=== PATIENT | male | born 1960 | race Hispanic/Latino ===

== ENCOUNTER → 2021-03-13 13:30 | Outpatient (CLI) | payer BC, SELFPAY ==
--- NOTE | 2021-03-13 | DI.RAD.S_ITS ---
PROCEDURE: FL JOINT INJECTION LARGE LT INDICATIONS: Unilateral primary osteoarthritis, left hip COMPARISON: None. TECHNIQUE: Single fluoroscopic image is provided for evaluation. FINDINGS: Needle is noted overlying the lateral aspect the femoral head. Contrast is noted overlying the joint space. IMPRESSION: Needle placement and contrast for hip injection. Dictated by: Leticia Rodrigues M.D. on 03/13/2021 at 19:33 Approved by: Leticia Rodrigues M.D. on 03/13/2021 at 19:34
== END ==
PROVIDERS: PCP Family Medicine; Referring Provider Orthopaedic Surgery; Visit Provider Orthopaedic Surgery
DX: M16.12 Unilateral primary osteoarthritis, left hip (principal)
CPT/HCPCS: 20610; 77002

== ENCOUNTER 2021-11-11 04:03 | Emergency (ER) | payer BC, SELFPAY ==
[2021-11-11 04:04] VITALS: BP 180/100; PULSE 118; RESP 20; TEMP 37.7; O2SAT 95; BMI 32.6
--- NOTE | 2021-11-11 04:15 | DI.RAD.S_ITS ---
PROCEDURE: XR CHEST 1V INDICATIONS: chest pain TECHNIQUE: One view of the chest was acquired. COMPARISON: [facility], CR, XR CHEST 1 VIEW, 12/04/2018, 18:45. FINDINGS: Surgical changes and devices: Cervical spinal fusion hardware is noted. Lungs and pleura: Possible mild bibasilar opacities. No pleural effusions or pneumothorax. Mediastinum: Mediastinal contours appear normal. Heart size is normal. Bones and chest wall: No suspicious bony lesions. Overlying soft tissues appear unremarkable. IMPRESSION: Possible mild bibasilar opacities could represent mild atelectasis, aspiration, or pneumonia. There is no significant discrepancy when compared to the overnight preliminary report. Dictated by: Arvind Spears M.D. on 11/11/2021 at 8:23 Approved by: Arvind Spears M.D. on 11/11/2021 at 8:25
--- NOTE | 2021-11-11 04:22 | ED_ITS ---
HPI - Chest Pain General Chief Complaint: Chest Pain Stated Complaint: pain in chest when coughing and swallowing Time Seen by Provider: 11/11/21 04:14 Source: patient and family Mode of arrival: Ambulatory Limitations: no limitations Limitations: no limitations History of Present Illness HPI narrative: 61-year-old male who is here for evaluation of pain in the epigastric region in the middle of his chest for the past 24-36 hours. He states that it hurts especially when he coughs and also when he swallows. No nausea vomiting. No change in bowel habits. No prior abdominal surgeries. No fevers. Symptoms not worse with palpation and movement. Back pain. Has not tried anything for the symptoms prior to arrival no history of reflux disease. No history of gallbladder pathology. Related Data Allergies Allergy/AdvReac Type Severity Reaction Status Date / Time No Known Drug Allergies Allergy Verified 11/11/21 04:22 Review of Systems Constitutional Constitutional: Denies fever(s) Cardiovascular Cardiovascular: Reports system reviewed and no additional complaints, except as documented Respiratory Respiratory: Reports system reviewed and no additional complaints, except as documented Gastrointestinal Gastrointestinal: Reports system reviewed and no additional complaints, except a s documented Musculoskeletal Musculoskeletal: Reports system reviewed and no additional complaints, except as documented Integumentary/Breasts Skin/Breast: Reports system reviewed and no additional complaints, except as documented Neurologic Neurologic: Reports system reviewed and no additional complaints, except as documented Hematologic/Lymphatic On Anticoagulants: No Patient History Medical History Hypertension Social History Smoking Status: Never smoker Smoking Status: Never smoker alcohol intake frequency: 3 or more drinks per day Substance Use Type: does not use Exam Initial Vital Signs Initial Vital Signs: Vital Signs Temperature 99.9 F H 11/11/21 04:04 Pulse Rate 118 H 11/11/21 04:04 Respiratory Rate 20 11/11/21 04:04 Blood Pressure 180/100 H 11/11/21 04:04 Pulse Oximetry 95 11/11/21 04:04 Oxygen Delivery Method 11/11/21 04:04 Const General: cooperative, healthy appearing, comfortable and well developed [facility] Head: normal to inspection and normocephalic Resp Effort & Inspection: normal respiratory effort Auscultation: clear to auscultation bilaterally Cardio Rate: regular rate Rhythm: regular rhythm GI Inspection: normal to inspection Palpation: soft, No firm and No tender Back/Spine/Pelvis Back: No CVA tenderness Skin General: no rashes or lesions noted Neuro General: patient alert, patient awake, patient oriented x3 and moves all extremities Extrem General: normal to inspection and No edema Psych Appearance: grossly normal and well kempt Scores HEART Score Heart Score history: Slightly Suspicious Heart Score EKG: Normal Heart Score Age: 45-64 years old Heart Score risk factors: 1-2 risk factors Heart Score troponin: < or = to normal limit Heart Score Total: 2 Course Orders Ordered: ED Orders 11/11/21 04:10 EKG-12 Lead Stat 11/11/21 04:15 XR chest 1V Stat 11/11/21 04:30 Complete Blood Count AUTO DIFF Stat Comprehensive Metabolic Panel Stat Lactate (Lactic Acid) Stat Lipase Stat Troponin & CK Cardiac Panel Stat 11/11/21 04:54 Blood Culture Stat 11/11/21 05:15 Urinalysis and Microscopic Stat Urine Culture Stat 11/11/21 06:35 Troponin I Stat Discontinued Medications Al Hydrox/Mg Hydrox/Simethicone 20 ml/ Lidocaine HCl 15 ml 0 ml PO NOW ONE Stop: 11/11/21 04:22 Last Admin: 11/11/21 04:41 Dose: 35 ml Documented By: JING Sodium Chloride (Normal Saline 0.9%) 1,000 mls @ 1,000 mls/hr IV BOLUS ONE Stop: 11/11/21 05:13 Last Infusion: 11/11/21 06:51 Dose: 0 mls/hr Documented By: Admin: 11/11/21 04:41 Dose: 1,000 mls/hr Documented By: JING Pantoprazole Sodium (Pantoprazole 40 Mg Vial) 40 mg IV NOW ONE Stop: 11/11/21 04:22 Last Admin: 11/11/21 04:41 Dose: 40 mg Documented By: JING Vital Signs Vital signs: Vital Signs - 8 hr 11/11/21 04:04 11/11/21 04:39 Temperature 99.9 F H Pulse Rate 118 H 106 H Respiratory Rate 20 19 Blood Pressure 180/100 H 145/84 H Pulse Oximetry 95 98 Oxygen Delivery Method Room Air Room Air MDM - Chest Pain Lab Data Attestation: I reviewed the patient's lab results. Result diagrams: 11/11/21 04:30 11/11/21 04:30 Labs: Lab Results 11/11/21 11/11/21 11/11/21 Range/Units 04:30 04:30 04:30 WBC 13.0 H (4.5-11.0) X10^3/uL RBC 4.75 (4.5-5.9) X10^6/uL Hgb 14.7 (13.5-17.5) g/dL Hct 42.6 (41-53) % MCV 89.8 (80-100) fL MCH 30.9 (26-34) PG MCHC 34.4 (30-36) % RDW 13.6 (11.6-14.8) % Plt Count 197 (150-400) X10^3/uL Neut % (Auto) Not Reportable Lymph % (Auto) Not Reportable Traverse % (Auto) Not Reportable Eos % (Auto) Not Reportable Baso % (Auto) Not Reportable Lymph # (Auto) Not Reportable Traverse # (Auto) Not Reportable Baso # (Auto) Not Reportable Total Counted 100 Seg Neutrophils % 77.0 H (38-70) % Band Neutrophils % 5.0 (3-7) % Lymphocytes % (Manual) 9.0 L (25-45) % Monocytes % (Manual) 7.0 (2-11) % Eosinophils % (Manual) 2.0 (2-4) % Neutrophils # (Manual) 49914 H (0141-5273) /uL RBC Morphology Normal morphology Sodium 136 L (137-145) mmol/L Potassium 3.9 (3.4-5.1) mmol/L Chloride 101 (98-107) mmol/L Carbon Dioxide 25 (22-32) mmol/L BUN 18 (9-20) mg/dL Creatinine 1.36 H (0.66-1.25) mg/dL Estimated GFR 58 L (>60) mL/min BUN/Creatinine Ratio 13.2 (6-22) Glucose 130 H (80-110) mg/dL Lactate 0.9 (0.7-2.1) mmol/L Calcium 8.5 (8.4-10.2) mg/dL Total Bilirubin 1.9 H (0.2-1.3) mg/dL AST 26 (17-59) IU/L ALT 34 (<50) IU/L Alkaline Phosphatase 78 (38-126) U/L Total Creatine Kinase (55-170) U/L CK-MB (CK-2) (<2.37) ng/mL CK-MB (CK-2) Rel Index (1.5-5.0) % Troponin I (0.01-0.034) ng/mL Total Protein 7.8 (6.3-8.2) g/dL Albumin 4.2 (3.5-5.0) g/dL Globulin 3.6 (1.7-4.1) g/dL Albumin/Globulin Ratio 1.2 (1.0-2.8) Lipase 66 (23-300) U/L Urine Color Urine Appearance Urine pH (4.5-8.0) Ur Specific Sumner (1.000-1.035) Urine Protein (Negative) Urine Glucose (UA) (Negative) g/dL Urine Ketones (NEGATIVE) Urine Occult Blood (Negative) Urine Nitrate (Negative) Urine Bilirubin (NEGATIVE) Urine Urobilinogen (0.2) E.U./dL Ur Leukocyte Esterase (NEGATIVE) Urine RBC (0-5/HPF) Urine WBC (0-5/HPF) Urine Bacteria (None) Ur Culture Indicated? Micro UA Comment 11/11/21 11/11/21 11/11/21 Range/Units 04:30 05:15 06:35 WBC (4.5-11.0) X10^3/uL RBC (4.5-5.9) X10^6/uL Hgb (13.5-17.5) g/dL Hct (41-53) % MCV (80-100) fL MCH (26-34) PG MCHC (30-36) % RDW (11.6-14.8) % Plt Count (150-400) X10^3/uL Neut % (Auto) Lymph % (Auto) Traverse % (Auto) Eos % (Auto) Baso % (Auto) Lymph # (Auto) Traverse # (Auto) Baso # (Auto) Total Counted Seg Neutrophils % (38-70) % Band Neutrophils % (3-7) % Lymphocytes % (Manual) (25-45) % Monocytes % (Manual) (2-11) % Eosinophils % (Manual) (2-4) % Neutrophils # (Manual) (7649-8943) /uL RBC Morphology Sodium (137-145) mmol/L Potassium (3.4-5.1) mmol/L Chloride (98-107) mmol/L Carbon Dioxide (22-32) mmol/L BUN (9-20) mg/dL Creatinine (0.66-1.25) mg/dL Estimated GFR (>60) mL/min BUN/Creatinine Ratio (6-22) Glucose (80-110) mg/dL Lactate (0.7-2.1) mmol/L Calcium (8.4-10.2) mg/dL Total Bilirubin (0.2-1.3) mg/dL AST (17-59) IU/L ALT (<50) IU/L Alkaline Phosphatase (38-126) U/L Total Creatine Kinase 110 (55-170) U/L CK-MB (CK-2) 0.32 (<2.37) ng/mL CK-MB (CK-2) Rel Index 0.3 L (1.5-5.0) % Troponin I < 0.012 < 0.012 (0.01-0.034) ng/mL Total Protein (6.3-8.2) g/dL Albumin (3.5-5.0) g/dL Globulin (1.7-4.1) g/dL Albumin/Globulin Ratio (1.0-2.8) Lipase (23-300) U/L Urine Color Yellow Urine Appearance Clear Urine pH 6.5 (4.5-8.0) Ur Specific Sumner 1.010 (1.000-1.035) Urine Protein Trace H (Negative) Urine Glucose (UA) Negative (Negative) g/dL Urine Ketones Trace H (NEGATIVE) Urine Occult Blood Trace-intact (Negative) Urine Nitrate Negative (Negative) Urine Bilirubin Negative (NEGATIVE) Urine Urobilinogen 0.2 (0.2) E.U./dL Ur Leukocyte Esterase Negative (NEGATIVE) Urine RBC None seen (0-5/HPF) Urine WBC None seen (0-5/HPF) Urine Bacteria None seen (None) Ur Culture Indicated? Culture not indicate Micro UA Comment * Imaging Data Chest x-ray: Radiologist's Impression: Mild bibasilar opacities can not exclude atypical pneumonia ECG Data Attestation: I personally reviewed and interpreted this ECG as follows: Interpretation: Sinus tachycardia Ventricular rate 119 Normal axis Normal QRS Normal QTC Incomplete right bundle-branch block No ST T wave changes MDM Narrative Medical decision making narrative: Patient was having improvement of symptoms upon arrival and during his time here his symptoms have resolved. He does think that the GI cocktail helped his symptoms somewhat. He does have a low risk heart score. His EKG is unremarkable. 2- troponins. I have a higher suspicion this is GI etiology. His blood pressure improved. He does have a leukocytosis and the chest x-ray does have reports of bibasilar opacities however clinically he does not have pneumonia. He does not have a productive cough. He is a clear lung exam. Is afebrile. I do feel that we should hold on antibiotics given his clinical presentation. Plan abuse for him to discharge home. He will contact his primary doctor to discuss further risk stratification for stress testing. I will start him on a proton pump inhibitor regiment. He was given strict return precautions. He expressed understanding and agreement. Discharge Plan Departure Patient Disposition: Home Clinical Impression: Atypical chest pain Instructions: DI for Atypical Chest Pain Activity Restrictions/Additional Instructions: I recommend that you contact your primary doctor for follow-up and to discuss further testing such as a stress test and also to discuss your blood pressure as it was elevated upon your arrival here to the ER. I also recommend that you sta rt on a gastroesophageal reflux disease regiment of medications. I recommend a class of medicines called proton pump inhibitors. This class includes medicines such as Nexium and Protonix. You can purchase these medications [id number]. The generic versions of these medications as appropriate. Please take them as directed. Return to the emergency department for any new or worsening symptoms. Referrals: Leobardo Akhtar DO [Primary Care Provider] -
[2021-11-11 04:39] VITALS: BP 145/84; PULSE 106; RESP 19; O2SAT 98
[2021-11-11] MEDS: PANTOPRAZOLE 40 MG VIAL IV (04:41)
[2021-11-11] MEDS: MAG HYDROX/ALUMINUM/SIMETH SUS 20 ML, LIDOCAINE VISCOUS 2% 15 ML PO (04:41)
[2021-11-11] MEDS: SODIUM CHLORIDE 0.9% 1,000 ML 1000 ML IV (04:41)
[2021-11-11 04:57] LABS: Hematocrit 42.6 % (41-53); Hemoglobin 14.7 g/dL (13.5-17.5); Mean Corpuscular HGB Conc 34.4 % (30-36); Mean Corpuscular Hemoglobin 30.9 PG (26-34); Mean Corpuscular Volume 89.8 fL (80-100); Platelet Count 197 X10^3/uL (150-400); Red Blood Cell Count 4.75 X10^6/uL (4.5-5.9); Red Cell Distribution Width 13.6 % (11.6-14.8)
[2021-11-11 04:58] LABS: Add Manual Diff / Slide Review YES
[2021-11-11 05:00] LABS: Creatine Kinase 110 U/L (55-170); Lactate (Lactic Acid) 0.9 mmol/L (0.7-2.1)
[2021-11-11 05:02] LABS: Alanine Aminotransferase 34 IU/L (<50); Albumin 4.2 g/dL (3.5-5.0); Albumin Globulin Ratio 1.2 (1.0-2.8); Alkaline Phosphatase 78 U/L (38-126); Aspartate Aminotransferase 26 IU/L (17-59); BUN Creatinine Ratio 13.2 (6-22); Bilirubin Total 1.9 mg/dL (0.2-1.3); Blood Urea Nitrogen 18 mg/dL (9-20); Calcium 8.5 mg/dL (8.4-10.2); Carbon Dioxide 25 mmol/L (22-32); Chloride 101 mmol/L (98-107); Estimated Glomerular Filt Rate 58 mL/min (>60); Globulin 3.6 g/dL (1.7-4.1); Glucose 130 mg/dL (80-110); HEMOLYSIS < 15 (0-50); Lipase 66 U/L (23-300); Potassium 3.9 mmol/L (3.4-5.1); Sodium 136 mmol/L (137-145); Total Protein 7.8 g/dL (6.3-8.2)
[2021-11-11 05:13] LABS: Troponin I < 0.012 ng/mL (0.01-0.034)
[2021-11-11 05:16] LABS: CKMB % Relative Index 0.3 % (1.5-5.0); Creatine Kinase MB 0.32 ng/mL (<2.37)
[2021-11-11 05:37] LABS: Appearance Urine UA CLEAR; Bilirubin Urine UA NEGATIVE (NEGATIVE); Color Urine UA YELLOW; Glucose Urine UA NEGATIVE (Negative); Ketones Urine UA TRACE (NEGATIVE); Leukocyte Esterase Urine UA NEGATIVE (NEGATIVE); Nitrite Urine UA NEGATIVE (Negative); Occult Blood Urine UA TRACE-INTACT (Negative); Protein Urine UA TRACE (Negative); Urobilinogen Urine UA 0.2 E.U./dL (0.2); pH Urine UA 6.5 (4.5-8.0)
[2021-11-11 06:41] LABS: Bacteria Urine None Seen; RBC Urine None Seen (0-5/HPF); WBC Urine None Seen (0-5/HPF)
[2021-11-11 06:53] LABS: Total Cells Counted 100
[2021-11-11 06:54] LABS: Neutrophils Absolute Manual 10660 /uL (3000-5900); RBC Morphology Normal Morphology
[2021-11-11 07:08] LABS: Troponin I < 0.012 ng/mL (0.01-0.034)
[2021-11-11 07:18] VITALS: BP 137/78; PULSE 97; RESP 18; O2SAT 97
== END 2021-11-11 07:23 | disposition home or self-care (01) ==
PROVIDERS: Emergency Provider Emergency Medicine; PCP Family Medicine
DX: R07.89 Other chest pain (principal); R00.0 Tachycardia, unspecified
CPT/HCPCS: 36415; 71045; 80053; 81001; 82550; 82553; 83605; 83690; 84484; 85007; 85025; 87040; 87086; 93005; 96361; 96374; 99284; C9113